=== PATIENT | male | born 1980 | race Caucasian/White ===

== ENCOUNTER 2023-02-05 23:29 | Emergency (ER) | payer SELFPAY ==
[~2023-02-05] VITALS: Ht 175.3 cm; Wt 70.3 kg
[2023-02-05 23:47] VITALS: BP 141/84
[2023-02-06] MEDS ORDERED: MORPHINE SULFATE INJ 2 MG/ML DISP.SYRIN IM ONE
[2023-02-06] MEDS ORDERED: MORPHINE SULFATE INJ 4 MG/ML DISP.SYRIN ONE (00:07)
[2023-02-06] MEDS ORDERED: KETOROLAC TROMETHAMINE INJ 60 MG/2 ML VIAL IM ONE ×2 (00:07)
[2023-02-06 00:28] VITALS: O2SAT 99
== END 2023-02-06 00:29 | disposition home or self-care (01) ==
LOC: ER 23:37
DX: K08.89 Other specified disorders of teeth and supporting structures (principal)
CPT/HCPCS: 99284; 96372 ×2; J2270; J1885